=== PATIENT | male | born 1935 | race Caucasian/White ===

== ENCOUNTER → 2017-09-01 | Outpatient (CLI) | payer MEDICARE | LOC: PLD 11:46 → LAB SHORT 11:46 | DX: D48.5 Neoplasm of uncertain behavior of skin (principal) | CPT/HCPCS: 88304; 88305 ==

== ENCOUNTER → 2017-09-14 | Outpatient (CLI) | payer MEDICARE | END | disposition home or self-care (01) | LOC: LAB SHORT 13:29 → PLD 13:29 | DX: D48.5 Neoplasm of uncertain behavior of skin (principal) | CPT/HCPCS: 88305 ==

== ENCOUNTER → 2017-09-22 | Outpatient (CLI) | payer MEDICARE | LOC: PLD 13:49 → LAB SHORT 13:49 | DX: C44.310 Basal cell carcinoma of skin of unspecified parts of face (principal) | CPT/HCPCS: 88305 ==

== ENCOUNTER → 2019-08-17 | Outpatient (CLI) | payer MEDICARE | END | disposition home or self-care (01) | LOC: PLD 08:08 → LAB SHORT 08:08 | DX: D23.71 Other benign neoplasm of skin of right lower limb, including hip (principal) | CPT/HCPCS: 88305 ==

== ENCOUNTER → 2021-02-06 | Outpatient (CLI) | payer MEDICARE | END | disposition home or self-care (01) | LOC: LAB SHORT 12:08 | DX: B37.2 Candidiasis of skin and nail (principal); B36.8 Other specified superficial mycoses; L85.9 Epidermal thickening, unspecified | CPT/HCPCS: 88305; 88312 ==

== ENCOUNTER → 2021-02-06 | Outpatient (CLI) | payer MEDICARE | END | disposition home or self-care (01) | LOC: LAB 09:35 → LAB SHORT 09:35 | DX: L08.0 Pyoderma (principal) | CPT/HCPCS: 87070; 87205 ==

== ENCOUNTER 2021-10-14 11:20 | Emergency (ER) | payer MEDICARE ==
[~2021-10-14] VITALS: Ht 175.3 cm; Wt 91.2 kg
[2021-10-14 12:31] LABS: BASOPHILS ABSOLUTE AUTO 0.03 K/mm3 (0.00-0.23); BASOPHILS PERCENT AUTO 1 % (0-2); EOSINOPHILS ABSOLUTE AUTO 0.12 K/mm3 (0.00-0.68); EOSINOPHILS PERCENT AUTO 3 % (0-6); Hemoglobin 12.5 g/dL (13.5-17.5); IMMATURE GRAN ABSOLUTE AUTO 0.01 K/mm3 (0.00-0.10); IMMATURE GRAN PERCENT AUTO 0 % (0-1); LYMPHOCYTES PERCENT AUTO 28 % (21-46); MONOCYTES ABSOLUTE AUTO 0.37 K/mm3 (0.16-1.47); MONOCYTES PERCENT AUTO 8 % (4-13); Mean Corpuscular HGB 32.6 pg (26.0-34.0); Mean Corpuscular HGB Conc 31.3 g/dL (31.5-36.5); Mean Corpuscular Volume 104 fL (80-100); Mean Platelet Volume 10.3 fL (9.1-12.4); NEUTROPHILS ABSOLUTE AUTO 2.77 K/mm3 (1.96-9.15); NEUTROPHILS PERCENT AUTO 60 % (41-73); Platelet Count 120 K/mm3 (150-400); RDW Coefficient Variation 13.3 % (11.7-14.2); RDW Standard Deviation 50.7 fL (35.1-46.3); Red Blood Cell Count 3.84 M/mm3 (4.30-5.90)
[2021-10-14 12:46] LABS: Albumin, Blood 3.5 g/dL (3.4-5.0); Albumin/Globulin Ratio 1.1 (0.8-1.8); Bilirubin, Total 0.5 mg/dL (0.1-1.0); Bun/Creatinine Ratio 14.1 (12.0-20.0); Calcium, Blood 8.7 mg/dL (8.5-10.1); Creatinine, Blood 1.42 mg/dL (0.60-1.20); Globulin, Blood 3.3 g/dL (2.2-4.0); Potassium, Blood 4.3 mmol/L (3.5-5.5); Total Protein, Blood 6.8 g/dL (6.4-8.2)
[2021-10-14] MEDS ORDERED: JANTOVEN3 M2 PO (12:56)
[2021-10-14] MEDS ORDERED: HYDROCODONE-AC1 EA16 PO (12:57)
[2021-10-14] MEDS ORDERED: NYSTATIN100000 U10 PO (12:57)
[2021-10-14] MEDS ORDERED: TRAZ50 PO (12:57)
[2021-10-14] MEDS ORDERED: DEXAMETHAS0.5 MG/5 M PO (12:57)
[2021-10-14] MEDS ORDERED: CITALOPRAM HBR20 M6 PO (12:58)
[2021-10-14] MEDS ORDERED: NYAMYC15 G1 TOP (12:58)
[2021-10-14] MEDS ORDERED: ALLOPURINOL100 M1 PO (12:58)
[2021-10-14] MEDS ORDERED: FUROSEMIDE20 MG PO (12:59)
[2021-10-14] MEDS ORDERED: LOVASTATIN20 MG PO (12:59)
[2021-10-14 14:20] LABS: Prothrombin Time Results 47.6 Sec (9.7-11.5)
[2021-10-14 14:23] LABS: International Normalized Ratio 5.04
== END 2021-10-14 15:08 | disposition home or self-care (01) ==
LOC: ER 11:20
PROVIDERS: Emergency Medicine; Physician Assistant
DX: R55 Syncope and collapse (principal); R79.1 Abnormal coagulation profile
CPT/HCPCS: 36415; 80053; 84484; 85025; 85610; 93005; 93010; 99284-25

== ENCOUNTER → 2021-11-12 | Outpatient (CLI) | payer MEDICARE ==
[~2021-11-12] MED LIST: ALLOPURINOL100 M1 PO; CITALOPRAM HBR20 M6 PO; DEXAMETHAS0.5 MG/5 M PO; FUROSEMIDE20 MG PO; HYDROCODONE-AC1 EA16 PO; JANTOVEN3 M2 PO; LOVASTATIN20 MG PO; NYAMYC15 G1 TOP; NYSTATIN100000 U10 PO; TRAZ50 PO
== END | disposition home or self-care (01) ==
LOC: LAB SHORT 08:17 → PLD 08:17 → LAB 08:17
DX: D48.5 Neoplasm of uncertain behavior of skin (principal)
CPT/HCPCS: 88305

== ENCOUNTER 2022-02-01 07:08 | Emergency (ER) | payer MEDICARE ==
[~2022-02-01] VITALS: Ht 175.3 cm; Wt 94.8 kg
[2022-02-01 08:51] LABS: Influenza A, PCR NEGATIVE (NEGATIVE); Influenza B, PCR NEGATIVE (NEGATIVE); Resp Syncytial Virus, PCR NEGATIVE (NEGATIVE); SARS-Cov-2 (COVID-19) PCR, MMC NEGATIVE (NEGATIVE)
[2022-02-01 09:26] LABS: BASOPHILS ABSOLUTE AUTO 0.07 K/mm3 (0.00-0.23); BASOPHILS PERCENT AUTO 1 % (0-2); EOSINOPHILS ABSOLUTE AUTO 0.19 K/mm3 (0.00-0.68); EOSINOPHILS PERCENT AUTO 3 % (0-6); Hematocrit 39.5 % (37.0-53.0); Hemoglobin 12.5 g/dL (13.5-17.5); IMMATURE GRAN ABSOLUTE AUTO 0.04 K/mm3 (0.00-0.10); IMMATURE GRAN PERCENT AUTO 1 % (0-1); LYMPHOCYTES ABSOLUTE AUTO 1.82 K/mm3 (0.84-5.20); LYMPHOCYTES PERCENT AUTO 28 % (21-46); MONOCYTES ABSOLUTE AUTO 0.77 K/mm3 (0.16-1.47); MONOCYTES PERCENT AUTO 12 % (4-13); Mean Corpuscular HGB 32.4 pg (26.0-34.0); Mean Corpuscular HGB Conc 31.6 g/dL (31.5-36.5); Mean Corpuscular Volume 102 fL (80-100); Mean Platelet Volume 10.1 fL (9.1-12.4); NEUTROPHILS ABSOLUTE AUTO 3.62 K/mm3 (1.96-9.15); NEUTROPHILS PERCENT AUTO 56 % (41-73); Platelet Count 126 K/mm3 (150-400); RDW Standard Deviation 48.8 fL (35.1-46.3); Red Blood Cell Count 3.86 M/mm3 (4.30-5.90); White Blood Cell Count 6.51 K/mm3 (4.00-11.30)
[2022-02-01 09:44] LABS: Albumin, Blood 3.7 g/dL (3.4-5.0); Albumin/Globulin Ratio 1.2 (0.8-1.8); Bilirubin, Total 0.7 mg/dL (0.1-1.0); Bun/Creatinine Ratio 15.9 (12.0-20.0); Calcium, Blood 9.3 mg/dL (8.5-10.1); Creatinine, Blood 1.64 mg/dL (0.60-1.20); Globulin, Blood 3.1 g/dL (2.2-4.0); Potassium, Blood 3.8 mmol/L (3.5-5.5); Total Protein, Blood 6.8 g/dL (6.4-8.2)
== END 2022-02-01 10:42 | disposition home or self-care (01) ==
LOC: ER 07:08
PROVIDERS: Emergency Medicine
DX: R42 Dizziness and giddiness (principal); Z20.822 Contact with and (suspected) exposure to COVID-19; Z79.01 Long term (current) use of anticoagulants; Z79.899 Other long term (current) drug therapy
CPT/HCPCS: 0241U; 80053; 84484; 85025; 93005; 93010

== ENCOUNTER → 2022-03-27 | Outpatient (CLI) | payer MEDICARE | END | disposition home or self-care (01) | LOC: LAB 15:23 → PLD 15:23 → LAB SHORT 15:23 | DX: L57.0 Actinic keratosis (principal) | CPT/HCPCS: 88305 ==

== ENCOUNTER → 2022-07-03 | Outpatient (CLI) | payer MEDICARE | END | disposition home or self-care (01) | LOC: LAB SHORT 10:30 → LAB 10:30 | DX: L08.0 Pyoderma (principal) | CPT/HCPCS: 87070; 87077; 87186; 87205 ==

== ENCOUNTER → 2022-08-28 | Outpatient (CLI) | payer MEDICARE | END | disposition home or self-care (01) | LOC: LAB 11:25 → LAB SHORT 11:25 | DX: L08.0 Pyoderma (principal) | CPT/HCPCS: 87070; 87205 ==

== ENCOUNTER → 2023-02-04 | Outpatient (CLI) | payer MEDICARE | END | disposition home or self-care (01) | LOC: LAB 15:30 → LAB SHORT 15:30 | DX: L08.0 Pyoderma (principal) | CPT/HCPCS: 87070; 87205 ==

== ENCOUNTER 2023-02-18 04:08 | Day surgery (SDC) | payer MEDICARE | END 2023-02-18 23:03 | disposition home or self-care (01) | LOC: WOUND 04:08 | DX: L08.0 Pyoderma (principal); L94.0 Localized scleroderma [morphea]; S31.109D Unspecified open wound of abdominal wall, unspecified quadrant without penetration into peritoneal cavity, subsequent encounter | CPT/HCPCS: A9270; G0463 ==

== ENCOUNTER 2023-02-25 01:20 | Day surgery (SDC) | payer MEDICARE | END 2023-02-25 23:12 | disposition home or self-care (01) | LOC: WOUND 01:20 | DX: L08.0 Pyoderma (principal); S31.109D Unspecified open wound of abdominal wall, unspecified quadrant without penetration into peritoneal cavity, subsequent encounter | CPT/HCPCS: A9270; G0463 ==

== ENCOUNTER 2023-03-05 02:38 | Day surgery (SDC) | payer MEDICARE | END 2023-03-05 23:36 | disposition home or self-care (01) | LOC: WOUND 02:38 | DX: L08.0 Pyoderma (principal); S31.109D Unspecified open wound of abdominal wall, unspecified quadrant without penetration into peritoneal cavity, subsequent encounter; X58.XXXD Exposure to other specified factors, subsequent encounter; I10 Essential (primary) hypertension; I25.10 Atherosclerotic heart disease of native coronary artery without angina pectoris | CPT/HCPCS: A9270; G0463 ==

== ENCOUNTER 2023-03-19 03:57 | Day surgery (SDC) | payer MEDICARE | END 2023-03-19 23:18 | disposition home or self-care (01) | LOC: WOUND 03:57 | DX: L08.0 Pyoderma (principal); S31.109D Unspecified open wound of abdominal wall, unspecified quadrant without penetration into peritoneal cavity, subsequent encounter; X58.XXXD Exposure to other specified factors, subsequent encounter; I25.10 Atherosclerotic heart disease of native coronary artery without angina pectoris; I10 Essential (primary) hypertension | CPT/HCPCS: A9270 ==

== ENCOUNTER 2023-03-23 11:01 | Day surgery (SDC) | payer MEDICARE | END 2023-03-23 22:44 | disposition home or self-care (01) | LOC: WOUND 11:01 | DX: S31.100A Unspecified open wound of abdominal wall, right upper quadrant without penetration into peritoneal cavity, initial encounter (principal); L08.0 Pyoderma; I25.10 Atherosclerotic heart disease of native coronary artery without angina pectoris; I10 Essential (primary) hypertension; X58.XXXA Exposure to other specified factors, initial encounter | CPT/HCPCS: G0463 ==

== ENCOUNTER 2023-04-10 00:50 | Day surgery (SDC) | payer MEDICARE | END 2023-04-10 22:47 | disposition home or self-care (01) | LOC: WOUND 00:50 | DX: L08.0 Pyoderma (principal); S31.109D Unspecified open wound of abdominal wall, unspecified quadrant without penetration into peritoneal cavity, subsequent encounter; X58.XXXD Exposure to other specified factors, subsequent encounter; I25.10 Atherosclerotic heart disease of native coronary artery without angina pectoris; I10 Essential (primary) hypertension | CPT/HCPCS: G0463 ==

== ENCOUNTER 2023-04-17 00:40 | Day surgery (SDC) | payer MEDICARE | END 2023-04-17 23:10 | disposition home or self-care (01) | LOC: WOUND 00:40 | DX: S31.109D Unspecified open wound of abdominal wall, unspecified quadrant without penetration into peritoneal cavity, subsequent encounter (principal); L08.0 Pyoderma | CPT/HCPCS: G0463 ==

== ENCOUNTER → 2023-04-28 | Outpatient (CLI) | payer MEDICARE | LOC: PLD 11:57 → LAB SHORT 11:57 | DX: D48.5 Neoplasm of uncertain behavior of skin (principal) | CPT/HCPCS: 88305 ==

== ENCOUNTER 2023-04-30 03:04 | Day surgery (SDC) | payer MEDICARE | END 2023-04-30 23:04 | disposition home or self-care (01) | LOC: WOUND 03:04 | DX: S31.109D Unspecified open wound of abdominal wall, unspecified quadrant without penetration into peritoneal cavity, subsequent encounter (principal); X58.XXXD Exposure to other specified factors, subsequent encounter; L08.0 Pyoderma | CPT/HCPCS: G0463 ==

== ENCOUNTER 2023-05-07 08:00 | Day surgery (SDC) | payer MEDICARE | END 2023-05-07 23:59 | disposition home or self-care (01) | LOC: WOUND 08:00 | DX: S31.100A Unspecified open wound of abdominal wall, right upper quadrant without penetration into peritoneal cavity, initial encounter (principal); S31.103A Unspecified open wound of abdominal wall, right lower quadrant without penetration into peritoneal cavity, initial encounter; T81.31XA Disruption of external operation (surgical) wound, not elsewhere classified, initial encounter; Y83.8 Other surgical procedures as the cause of abnormal reaction of the patient, or of later complication, without mention of misadventure at the time of the procedure; X58.XXXA Exposure to other specified factors, initial encounter; I25.10 Atherosclerotic heart disease of native coronary artery without angina pectoris; I10 Essential (primary) hypertension; L08.0 Pyoderma | CPT/HCPCS: G0463 ==

== ENCOUNTER 2023-05-28 03:18 | Day surgery (SDC) | payer MEDICARE | END 2023-05-28 22:35 | disposition home or self-care (01) | LOC: WOUND 03:18 | DX: L08.0 Pyoderma (principal); S81.801D Unspecified open wound, right lower leg, subsequent encounter; S31.103D Unspecified open wound of abdominal wall, right lower quadrant without penetration into peritoneal cavity, subsequent encounter; S31.100D Unspecified open wound of abdominal wall, right upper quadrant without penetration into peritoneal cavity, subsequent encounter; I25.10 Atherosclerotic heart disease of native coronary artery without angina pectoris; I10 Essential (primary) hypertension | CPT/HCPCS: A9270; G0463 ==

== ENCOUNTER 2023-06-04 05:15 | Day surgery (SDC) | payer MEDICARE | END 2023-06-04 22:44 | disposition home or self-care (01) | LOC: WOUND 05:15 | DX: S31.109D Unspecified open wound of abdominal wall, unspecified quadrant without penetration into peritoneal cavity, subsequent encounter (principal); X58.XXXD Exposure to other specified factors, subsequent encounter; L08.0 Pyoderma; I25.10 Atherosclerotic heart disease of native coronary artery without angina pectoris; I10 Essential (primary) hypertension | CPT/HCPCS: A9270; G0463 ==

== ENCOUNTER 2023-06-10 09:14 | Day surgery (SDC) | payer MEDICARE | END 2023-06-10 22:50 | disposition home or self-care (01) | LOC: WOUND 09:14 | DX: L08.0 Pyoderma (principal); I25.10 Atherosclerotic heart disease of native coronary artery without angina pectoris; I10 Essential (primary) hypertension; T81.30XD Disruption of wound, unspecified, subsequent encounter; Y83.8 Other surgical procedures as the cause of abnormal reaction of the patient, or of later complication, without mention of misadventure at the time of the procedure | CPT/HCPCS: G0463 ==

== ENCOUNTER 2023-06-18 02:02 | Day surgery (SDC) | payer MEDICARE | END 2023-06-18 22:51 | disposition home or self-care (01) | LOC: WOUND 02:02 | DX: S31.109D Unspecified open wound of abdominal wall, unspecified quadrant without penetration into peritoneal cavity, subsequent encounter (principal); S81.801D Unspecified open wound, right lower leg, subsequent encounter; X58.XXXD Exposure to other specified factors, subsequent encounter; L08.0 Pyoderma | CPT/HCPCS: A9270; G0463 ==

== ENCOUNTER 2023-07-16 02:53 | Day surgery (SDC) | payer MEDICARE | END 2023-07-16 22:57 | disposition home or self-care (01) | LOC: WOUND 02:53 | DX: S31.100D Unspecified open wound of abdominal wall, right upper quadrant without penetration into peritoneal cavity, subsequent encounter (principal); S81.801D Unspecified open wound, right lower leg, subsequent encounter; X58.XXXD Exposure to other specified factors, subsequent encounter; L08.0 Pyoderma; I10 Essential (primary) hypertension; I25.10 Atherosclerotic heart disease of native coronary artery without angina pectoris | CPT/HCPCS: G0463 ==

== ENCOUNTER 2023-07-23 04:57 | Day surgery (SDC) | payer MEDICARE | END 2023-07-24 23:56 | disposition home or self-care (01) | LOC: WOUND 04:57 | DX: S31.100D Unspecified open wound of abdominal wall, right upper quadrant without penetration into peritoneal cavity, subsequent encounter (principal); S31.103D Unspecified open wound of abdominal wall, right lower quadrant without penetration into peritoneal cavity, subsequent encounter; L08.0 Pyoderma; S81.801D Unspecified open wound, right lower leg, subsequent encounter; X58.XXXD Exposure to other specified factors, subsequent encounter; I25.10 Atherosclerotic heart disease of native coronary artery without angina pectoris; I10 Essential (primary) hypertension | CPT/HCPCS: A9270; G0463 ==

== ENCOUNTER 2023-07-30 01:50 | Day surgery (SDC) | payer MEDICARE | END 2023-07-30 22:46 | disposition home or self-care (01) | LOC: WOUND 01:50 | DX: L08.0 Pyoderma (principal); S31.109D Unspecified open wound of abdominal wall, unspecified quadrant without penetration into peritoneal cavity, subsequent encounter; S81.801D Unspecified open wound, right lower leg, subsequent encounter; X58.XXXD Exposure to other specified factors, subsequent encounter | CPT/HCPCS: A9270; G0463 ==

== ENCOUNTER 2023-08-07 03:00 | Day surgery (SDC) | payer MEDICARE | END 2023-08-07 22:58 | disposition home or self-care (01) | LOC: WOUND 03:00 | DX: L08.0 Pyoderma (principal); I25.10 Atherosclerotic heart disease of native coronary artery without angina pectoris; I10 Essential (primary) hypertension; S31.109D Unspecified open wound of abdominal wall, unspecified quadrant without penetration into peritoneal cavity, subsequent encounter | CPT/HCPCS: G0463 ==

== ENCOUNTER 2023-08-14 02:47 | Day surgery (SDC) | payer MEDICARE | END 2023-08-14 22:48 | disposition home or self-care (01) | LOC: WOUND 02:47 | DX: S31.109D Unspecified open wound of abdominal wall, unspecified quadrant without penetration into peritoneal cavity, subsequent encounter (principal); L08.0 Pyoderma; S81.801D Unspecified open wound, right lower leg, subsequent encounter; X58.XXXD Exposure to other specified factors, subsequent encounter | CPT/HCPCS: G0463 ==

== ENCOUNTER 2023-08-21 01:19 | Day surgery (SDC) | payer MEDICARE | END 2023-08-21 22:49 | disposition home or self-care (01) | LOC: WOUND 01:19 | DX: L08.0 Pyoderma (principal); I25.10 Atherosclerotic heart disease of native coronary artery without angina pectoris; I10 Essential (primary) hypertension; S31.109D Unspecified open wound of abdominal wall, unspecified quadrant without penetration into peritoneal cavity, subsequent encounter; S81.801D Unspecified open wound, right lower leg, subsequent encounter; E78.2 Mixed hyperlipidemia; E79.0 Hyperuricemia without signs of inflammatory arthritis and tophaceous disease; R41.3 Other amnesia; X58.XXXD Exposure to other specified factors, subsequent encounter | CPT/HCPCS: 36415; 80053; 80061; 82043; 82570; 82607; 82746; 84443; 84550; 85025; 85651; 86592; A9270; G0463 ==

== ENCOUNTER 2023-08-28 03:38 | Day surgery (SDC) | payer MEDICARE | END 2023-08-28 23:41 | disposition home or self-care (01) | LOC: WOUND 03:38 | DX: L08.0 Pyoderma (principal); I25.10 Atherosclerotic heart disease of native coronary artery without angina pectoris | CPT/HCPCS: G0463 ==

== ENCOUNTER 2023-09-04 01:24 | Day surgery (SDC) | payer MEDICARE | END 2023-09-04 22:47 | disposition home or self-care (01) | LOC: WOUND 01:24 | DX: L08.0 Pyoderma (principal); I10 Essential (primary) hypertension; I25.10 Atherosclerotic heart disease of native coronary artery without angina pectoris; S31.109D Unspecified open wound of abdominal wall, unspecified quadrant without penetration into peritoneal cavity, subsequent encounter; S81.801D Unspecified open wound, right lower leg, subsequent encounter | CPT/HCPCS: G0463 ==

== ENCOUNTER 2023-09-11 00:49 | Day surgery (SDC) | payer MEDICARE ==
[2023-09-11] MEDS ORDERED: Triamcinolone Acet 0.1% Cream 15 gm ONE (08:53)
== END 2023-09-11 23:03 | disposition home or self-care (01) ==
LOC: WOUND 00:49
DX: L08.0 Pyoderma (principal); I25.10 Atherosclerotic heart disease of native coronary artery without angina pectoris; I10 Essential (primary) hypertension; S31.109D Unspecified open wound of abdominal wall, unspecified quadrant without penetration into peritoneal cavity, subsequent encounter; S81.801D Unspecified open wound, right lower leg, subsequent encounter
CPT/HCPCS: A9270; G0463

== ENCOUNTER 2023-09-18 01:37 | Day surgery (SDC) | payer MEDICARE | END 2023-09-20 23:19 | disposition home or self-care (01) | LOC: WOUND 01:37 | DX: L08.0 Pyoderma (principal); I25.10 Atherosclerotic heart disease of native coronary artery without angina pectoris; S31.109D Unspecified open wound of abdominal wall, unspecified quadrant without penetration into peritoneal cavity, subsequent encounter; S81.801D Unspecified open wound, right lower leg, subsequent encounter; I10 Essential (primary) hypertension | CPT/HCPCS: G0463 ==

== ENCOUNTER → 2023-11-05 | Outpatient (CLI) | payer MEDICARE | LOC: LAB 11:59 → LAB SHORT 11:59 | DX: D48.5 Neoplasm of uncertain behavior of skin (principal) | CPT/HCPCS: 88305; 88312 ==

== ENCOUNTER 2023-12-11 05:17 | Day surgery (SDC) | payer MEDICARE | END 2023-12-11 22:39 | disposition home or self-care (01) | LOC: WOUND 05:17 | DX: L08.0 Pyoderma (principal); I25.10 Atherosclerotic heart disease of native coronary artery without angina pectoris; I10 Essential (primary) hypertension; L89.313 Pressure ulcer of right buttock, stage 3; S31.109D Unspecified open wound of abdominal wall, unspecified quadrant without penetration into peritoneal cavity, subsequent encounter; S81.801D Unspecified open wound, right lower leg, subsequent encounter; X58.XXXD Exposure to other specified factors, subsequent encounter ==

== ENCOUNTER 2024-02-12 01:36 | Day surgery (SDC) | payer MEDICARE | END 2024-02-12 22:38 | disposition home or self-care (01) | LOC: WOUND 01:36 | DX: L08.0 Pyoderma (principal); I25.10 Atherosclerotic heart disease of native coronary artery without angina pectoris; I10 Essential (primary) hypertension; L89.313 Pressure ulcer of right buttock, stage 3; S31.109D Unspecified open wound of abdominal wall, unspecified quadrant without penetration into peritoneal cavity, subsequent encounter; S81.801D Unspecified open wound, right lower leg, subsequent encounter; X58.XXXD Exposure to other specified factors, subsequent encounter | CPT/HCPCS: G0463 ==

== ENCOUNTER 2024-03-04 03:41 | Day surgery (SDC) | payer MEDICARE | END 2024-03-04 22:56 | disposition home or self-care (01) | LOC: WOUND 03:41 | DX: L08.0 Pyoderma (principal); L89.313 Pressure ulcer of right buttock, stage 3; I25.10 Atherosclerotic heart disease of native coronary artery without angina pectoris; I10 Essential (primary) hypertension | CPT/HCPCS: G0463 ==

== ENCOUNTER 2024-04-07 01:14 | Day surgery (SDC) | payer MEDICARE | END 2024-04-07 22:45 | disposition home or self-care (01) | LOC: WOUND 01:14 | DX: L08.0 Pyoderma (principal); S31.100A Unspecified open wound of abdominal wall, right upper quadrant without penetration into peritoneal cavity, initial encounter; S31.103A Unspecified open wound of abdominal wall, right lower quadrant without penetration into peritoneal cavity, initial encounter; X58.XXXA Exposure to other specified factors, initial encounter; L89.313 Pressure ulcer of right buttock, stage 3; I10 Essential (primary) hypertension; I25.10 Atherosclerotic heart disease of native coronary artery without angina pectoris | CPT/HCPCS: G0463 ==

== ENCOUNTER 2024-04-22 04:49 | Day surgery (SDC) | payer MEDICARE ==
[2024-04-22] MEDS ORDERED: Lidocaine HCl 4% Cream 5 GM ONE (10:32)
== END 2024-04-23 01:37 | disposition home or self-care (01) ==
LOC: WOUND 04:49
DX: L08.0 Pyoderma (principal); S31.109D Unspecified open wound of abdominal wall, unspecified quadrant without penetration into peritoneal cavity, subsequent encounter; I25.10 Atherosclerotic heart disease of native coronary artery without angina pectoris; I10 Essential (primary) hypertension; X58.XXXD Exposure to other specified factors, subsequent encounter
CPT/HCPCS: A6213; A9270

== ENCOUNTER 2024-05-06 03:32 | Day surgery (SDC) | payer MEDICARE | END 2024-05-07 02:57 | disposition home or self-care (01) | LOC: WOUND 03:32 | DX: S31.109D Unspecified open wound of abdominal wall, unspecified quadrant without penetration into peritoneal cavity, subsequent encounter (principal); S61.501A Unspecified open wound of right wrist, initial encounter; I10 Essential (primary) hypertension; I25.10 Atherosclerotic heart disease of native coronary artery without angina pectoris | CPT/HCPCS: A6213; G0463 ==

== ENCOUNTER 2024-05-27 03:25 | Day surgery (SDC) | payer MEDICARE | END 2024-05-27 23:05 | disposition home or self-care (01) | LOC: WOUND 03:25 | DX: L08.0 Pyoderma (principal); I10 Essential (primary) hypertension; I25.10 Atherosclerotic heart disease of native coronary artery without angina pectoris | CPT/HCPCS: G0463 ==

== ENCOUNTER 2024-08-11 11:46 | Inpatient (IN) | payer MEDICARE ==
[~2024-08-11] VITALS: Ht 182.9 cm; Wt 83.5 kg
[~2024-08-11 11:46] MED LIST changes: -HYDROCODONE-AC1 EA16 PO; +Norco 5-325 Ta1 EACH PO
[2024-08-11 12:52] LABS: BASOPHILS ABSOLUTE AUTO 0.03 K/mm3 (0.00-0.23); BASOPHILS PERCENT AUTO 0 % (0-2); EOSINOPHILS ABSOLUTE AUTO 0.02 K/mm3 (0.00-0.68); EOSINOPHILS PERCENT AUTO 0 % (0-6); Hematocrit 39.5 % (37.0-53.0); Hemoglobin 12.9 g/dL (13.5-17.5); IMMATURE GRAN ABSOLUTE AUTO 0.03 K/mm3 (0.00-0.10); IMMATURE GRAN PERCENT AUTO 0 % (0-1); LYMPHOCYTES ABSOLUTE AUTO 1.35 K/mm3 (0.84-5.20); LYMPHOCYTES PERCENT AUTO 16 % (21-46); MONOCYTES PERCENT AUTO 15 % (4-13); Mean Corpuscular HGB 34.9 pg (26.0-34.0); Mean Corpuscular HGB Conc 32.7 g/dL (31.5-36.5); Mean Corpuscular Volume 107 fL (80-100); Mean Platelet Volume 10.4 fL (9.1-12.4); NEUTROPHILS ABSOLUTE AUTO 5.67 K/mm3 (1.96-9.15); NEUTROPHILS PERCENT AUTO 68 % (41-73); Platelet Count 122 K/mm3 (150-400); RDW Coefficient Variation 12.5 % (11.7-14.2); RDW Standard Deviation 49.2 fL (35.1-46.3)
[2024-08-11 13:04] LABS: International Normalized Ratio 2.64; Prothrombin Time Results 26.3 Sec (9.7-11.5)
[2024-08-11 13:18] LABS: Albumin, Blood 3.6 g/dL (3.4-5.0); Albumin/Globulin Ratio 0.9 (0.8-1.8); Bilirubin, Total 0.7 mg/dL (0.1-1.0); Bun/Creatinine Ratio 17.9 (12.0-20.0); Calcium, Blood 9.2 mg/dL (8.5-10.1); Creatinine, Blood 1.68 mg/dL (0.60-1.20); Globulin, Blood 4.1 g/dL (2.2-4.0); Potassium, Blood 3.6 mmol/L (3.5-5.5); Total Protein, Blood 7.7 g/dL (6.4-8.2)
[2024-08-11 16:37] LABS: Source, Urine Clean Catch
[2024-08-11 16:41] LABS: Appearance, Urine Clear (Clear); Bilirubin, Urine Neg (Neg); Blood, Urine 3+ (Neg); Color, Urine Yellow (P-Yellow); Glucose Qualitative, Urine Neg (Neg); Ketones, Urine Neg (Neg); Leukocyte Esterase, Urine Neg (Neg); Nitrite, Urine Neg (Neg); Protein, Urine 2+ (Neg); Specific Gravity, Urine 1.015 (1.003-1.022); Urobilinogen, Urine NORM (Normal)
[2024-08-11 17:01] LABS: Bacteria Rare /hpf; Squamous Epithelial Cells Rare /hpf (Few); White Blood Cells, Urine 0-2 /hpf (0-5)
[2024-08-11 18:09] LABS: Magnesium, Blood 2.2 mg/dL (1.6-2.4)
[2024-08-11] MEDS ORDERED: NS 1,000 ML IV SCH ×2 (18:20→20:50)
[2024-08-11 18:26] LABS: Influenza A, PCR NEGATIVE (NEGATIVE); Influenza B, PCR NEGATIVE (NEGATIVE); Resp Syncytial Virus, PCR NEGATIVE (NEGATIVE); SARS-Cov-2 (COVID-19) PCR, MMC NEGATIVE (NEGATIVE)
[2024-08-11] MEDS ORDERED: FLU VACC TS2024-25(6MOS UP)/PF 45 MCG/0.5 ML SYRINGE IM ONE (20:50)
[2024-08-11] MEDS ORDERED: Ondansetron HCl 2 MG / ML 2ML Vial IV PRN (20:50)
[2024-08-11] MEDS ORDERED: TraZODone HCl 50 MG Tab PO SCH (21:00)
[2024-08-11 23:11] VITALS: BP 117/54
--- NOTE | 2024-08-11 23:37 | NUR ---
PATIENT IS A NEW ADMIT FROM THE ED. AXOX 4, [place], AND BEDREST. ON ROOM AIR. THREE PERSON TRANSFER FROM [facility] TO BED. DENIES CHEST PAIN, SOB, AND N/V. REPORTS CHRONIC BACK/KNEE PAIN. PAIN DISC ON MID-BACK. SON PRESENT IS NOT SURE IF IS A STIMULATOR BECAUSE IT CAN BE RECHARGED. TELEMETRY PLACED AND TECH REPORTS NSR @ 66 WITH OCCASSIONAL PVC. USING URINAL AT BEDSIDE. SON VERA REPORTS PATIENT LIVES AT HIS HOUSE ALONE WITH SPOUSE PASSED TWO YEARS AGO. 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 SON REPORTS HE RECENTLY MOVED IN WITH PATIENT. NS STARTED @ 150 mL/HR. PATIENT REPORTS WANTS TO SLEEP AFTER ASSESSMENT. WCTM.
[2024-08-12 02:08] VITALS: BP 127/60
[2024-08-12] MEDS ORDERED: HYDROcodone 5-APAP 325 TAB PO PRN (02:35)
--- NOTE | 2024-08-12 05:05 | NUR ---
SHIFT SUMMARY PATIENT HAD NO ACUTE CHANGES. AXOX 4 AND BEDREST, USING CANE AT HOME. ALUTIIQ. USES URINAL AT BEDSIDE. DENIES CHEST PAIN, SOB, AND N/V. VSS/AFEBRILE. PIV INTACT. NS INFUSING @ 150 mL/HR. REPORTED CHRONIC BACK/KNEE PAIN AND HOSPITALIST DR ALMAGUER ORDERED NORCO 5/325 MG Q6 PRN. TELE MONITOR NSR 66. PAIN EXTERNAL DEVICE ON MIDDLE OF BACK WITH SON NOT SURE WHICH TIME, SUCH A SPINAL CORD STIMULATOR. CALL LIGHT IN REACH. BED IN LOWEST POSITION. WILL CONTINUE TO MONITOR UNTIL DAY SHIFT NURSE ASSUMES CARE.
[2024-08-12 05:40] LABS: BASOPHILS ABSOLUTE AUTO 0.02 K/mm3 (0.00-0.23); BASOPHILS PERCENT AUTO 0 % (0-2); EOSINOPHILS ABSOLUTE AUTO 0.02 K/mm3 (0.00-0.68); EOSINOPHILS PERCENT AUTO 0 % (0-6); Hematocrit 32.7 % (37.0-53.0); Hemoglobin 10.7 g/dL (13.5-17.5); IMMATURE GRAN ABSOLUTE AUTO 0.02 K/mm3 (0.00-0.10); IMMATURE GRAN PERCENT AUTO 0 % (0-1); LYMPHOCYTES ABSOLUTE AUTO 0.76 K/mm3 (0.84-5.20); LYMPHOCYTES PERCENT AUTO 11 % (21-46); MONOCYTES ABSOLUTE AUTO 0.92 K/mm3 (0.16-1.47); MONOCYTES PERCENT AUTO 13 % (4-13); Mean Corpuscular HGB 34.5 pg (26.0-34.0); Mean Corpuscular HGB Conc 32.7 g/dL (31.5-36.5); Mean Corpuscular Volume 106 fL (80-100); Mean Platelet Volume 10.1 fL (9.1-12.4); NEUTROPHILS PERCENT AUTO 75 % (41-73); NRBC ABSOLUTE 0.02 K/mm3 (0.00-0.02); NRBC Auto 0.3 /100 WBC (0.0-0.2); Platelet Count 105 K/mm3 (150-400); RDW Coefficient Variation 12.6 % (11.7-14.2); RDW Standard Deviation 48.7 fL (35.1-46.3); White Blood Cell Count 7.04 K/mm3 (4.00-11.30)
[2024-08-12 06:04] LABS: Albumin, Blood 2.7 g/dL (3.4-5.0); Albumin/Globulin Ratio 0.8 (0.8-1.8); Bilirubin, Total 0.8 mg/dL (0.1-1.0); Bun/Creatinine Ratio 16.2 (12.0-20.0); Calcium, Blood 8.5 mg/dL (8.5-10.1); Creatinine, Blood 1.48 mg/dL (0.60-1.20); Globulin, Blood 3.3 g/dL (2.2-4.0); Magnesium, Blood 1.9 mg/dL (1.6-2.4); Potassium, Blood 3.2 mmol/L (3.5-5.5)
[2024-08-12 07:08] LABS: International Normalized Ratio 2.54; Prothrombin Time Results 25.4 Sec (9.7-11.5)
[2024-08-12 07:32] VITALS: BP 111/51
[2024-08-12] MEDS ORDERED: Heparin Sodium 5000 Units/ML 1ML MDV SC SCH (09:00)
[2024-08-12] MEDS ORDERED: Allopurinol 100 MG Tab PO SCH (09:00)
[2024-08-12] MEDS ORDERED: DONE5 PO (10:40)
[2024-08-12] MEDS ORDERED: LOSARTAN POTAS100 M1 PO (10:40)
[2024-08-12] MEDS ORDERED: OMEP20ER PO (10:41)
[2024-08-12 15:31] VITALS: BP 109/51
--- NOTE | 2024-08-12 16:06 | NUR ---
PT BP 109/51 P 55, PER TELE, 61, DOES OCC DROP TO 55.
--- NOTE | 2024-08-12 16:50 | NUR ---
PT PLEASANT COOP QUITE PORT LIONS WITHOUT AIDES. SON IN ROOM MUCH OF DAY. PAIN IN LEGS. RELEIVED WITH AVAIL MEDS TO PT SATISFACTION. NO SYNCOPAL ISSUES TOAY. HAS BEEN UP WITH PT AND OT. BP SOFT BUT STABLE. NO FURTHER CONCERNS NOTED. BED IN LOW POSITION, CALL LITE IN REACH, CALLS APPROP
[2024-08-12] MEDS ORDERED: Warfarin Sodium 3 MG Tab PO SCH (18:00)
[2024-08-12 20:05] VITALS: BP 118/55
--- NOTE | 2024-08-13 03:53 | NUR ---
SHIFT SUMAMRY UP IN CHAIR UNTIL H.S., X2 ASSIST FROM RECLINER TO BED AT H.S. A&0X3. [place], PLEASANT. CALL LIGHT IN REACH & USES APPROPRIATLY RESTING WELL WITH NO C/O PAIN ORLIGHTHEADEDNESS OVERNIGHT,NO LOW BPs, GENERALIZED WEAKNESS, ON TELEMETRY AND WAS NSR W/ BBB PER TELEMETERY TECH AT 2127. NS INFUSING AT 150 ML/HR. ON ROOM AIR, LUNGS CLEAR/DIM. VSS. VOIDING WNL IN URINAL.
[2024-08-13 05:11] VITALS: BP 132/61
[2024-08-13 07:28] VITALS: BP 129/61
[2024-08-13 07:33] LABS: International Normalized Ratio 2.2; Prothrombin Time Results 22.2 Sec (9.7-11.5)
[2024-08-13 15:22] VITALS: BP 142/70
--- NOTE | 2024-08-13 17:29 | NUR ---
NO ACUTE CHANGES, FAMILY HELPFUL WITH CARE, MEDICATED FOR PAIN, MAKES NEEDS KNOWN, TELE DISCONTINUED, WAITING FOR SNF PLACEMENT, CALL LIGHT WITH IN REACH
[2024-08-13] MEDS ORDERED: Warfarin Sodium 5 MG Tab PO ONE (18:00)
[2024-08-13 20:29] VITALS: BP 144/68
--- NOTE | 2024-08-14 04:15 | NUR ---
BAGGAGE CHECKER SUMMARY VSS. SON WAS AT BEDSIDE AT SHIFT COMMENCE. PT JOKED WITH SON AND NURSE. ALERT AND ORIENTED. VOICED PAIN WHEN TAKING DEEP BREATHS, OTHERWISE ASYMPTOMATIC. PAIN MEDS ADMIN - SEE MAR FOR DETAILS. NO VOICED SYNCOPE. USING OWN CPAP AT NIGHT, HAS BEEN RESTING QUIETLY WITH FEW INTERRUPTIONS. HOB ELEVATED. CALL LIGHT IN REACH, RAILS UP X 2 AND BED IN LOW POSITION FOR SAFETY. WILL CONT TO MONITOR.
[2024-08-14 05:42] VITALS: BP 130/70
[2024-08-14 06:24] LABS: Hematocrit 35.2 % (37.0-53.0); Hemoglobin 11.2 g/dL (13.5-17.5); Mean Corpuscular HGB 34.3 pg (26.0-34.0); Mean Corpuscular HGB Conc 31.8 g/dL (31.5-36.5); Mean Corpuscular Volume 108 fL (80-100); Mean Platelet Volume 10.5 fL (9.1-12.4); Platelet Count 131 K/mm3 (150-400); RDW Coefficient Variation 12.7 % (11.7-14.2); RDW Standard Deviation 50.9 fL (35.1-46.3); Red Blood Cell Count 3.27 M/mm3 (4.30-5.90); White Blood Cell Count 5.41 K/mm3 (4.00-11.30)
[2024-08-14 06:34] LABS: International Normalized Ratio 1.93; Prothrombin Time Results 19.7 Sec (9.7-11.5)
[2024-08-14 07:01] LABS: Albumin, Blood 2.4 g/dL (3.4-5.0); Anion Gap 10 mmol/L (3-11); Blood Urea Nitrogen 24 mg/dL (8-24); Bun/Creatinine Ratio 17.8 (12.0-20.0); CO2, Blood 21 mmol/L (21-32); Calcium, Blood 8.8 mg/dL (8.5-10.1); Chloride, Blood 116 mmol/L (98-108); Creatinine, Blood 1.35 mg/dL (0.60-1.20); Glomerular Filtration Rate 51 (60-); Glucose, Blood 112 mg/dL (70-99); Phosphorus, Blood 2.6 mg/dL (2.5-4.9); Potassium, Blood 3.7 mmol/L (3.5-5.5); Sodium, Blood 143 mmol/L (136-145)
[2024-08-14 07:51] VITALS: BP 130/62
[2024-08-14 15:07] VITALS: BP 145/62
--- NOTE | 2024-08-14 17:09 | NUR ---
SHIFT SUMMARY PT AXO, PLEASANT AND COOPERATIVE WITH CARE. PT WAS ENCOURAGED TO GET UP TO A RECLINER AND HE AGREED X1. PT HAD VERY LARGE BM THIS SHIFT. PT'S SON CHANGED THE NEUROSTIMULATOR UNIT ON PT'S BACK THIS SHIFT. PT ON RA. VSS. NO ACUTE CHANGES THIS SHIFT. BED IN LOW POSITION, CALL LIGHT WITHIN REACH.
[2024-08-14] MEDS ORDERED: Warfarin Sodium 5 MG Tab PO ONE (18:00)
[2024-08-14 19:31] VITALS: BP 139/64
[2024-08-15 02:50] VITALS: BP 129/60
--- NOTE | 2024-08-15 03:59 | NUR ---
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 AFFECT CHEERFUL AT HS, JOKED WITH NURSE. REQUESTED AND RECEIVED PAIN MED FOR BACK PAIN. USING OWN CPAP MACHINE FOR SLEEP APNEA. NO C/O SYNCOPE. STATED HE WAS GOING TO GO TO [place] T[place]. HAS BEEN RESTING QUIETLY WITH FEW INTERRUPTIONS. CONT PULSE OX HR IN 50'S AND 60'S. SATS IN THE 90'S. ABLE TO REPOSITION SELF IN BED WITHOUT ASSIST. CALL LIGHT IN REACH, RAILS UP X 2 AND BED IN LOW POSITION FOR SAFETY. WILL CONTINUE TO MONITOR.
[2024-08-15 07:20] LABS: International Normalized Ratio 2.45; Prothrombin Time Results 24.5 Sec (9.7-11.5)
[2024-08-15 07:31] VITALS: BP 144/77
[2024-08-15 13:21] LABS: CK TOTAL 288 U/L (39-308); CK-BB 0 % (0-0); CK-MACRO TYPE I 0 % (0-0); CK-MACRO TYPE II 0 % (0-0); CK-MB 0 % (0-4); CK-MM 100 % (96-100)
[2024-08-15 15:39] VITALS: BP 137/63
[2024-08-15 15:42] VITALS: BP 140/58
[2024-08-15] MEDS ORDERED: Warfarin Sodium 3 MG Tab PO SCH (18:00)
--- NOTE | 2024-08-15 18:32 | NUR ---
PATIENT IS ALERT AND ORIENTED AND COOPERATIVE WITH CARE. [place], HEARING AIDS IN PLACE. SON AT THE BEDSIDE. ON CONT. PULSE OX, RA. USES THE URINAL INDEPENDENTLY. PLAN TO DC TO A ANSF WHEN ACCEPTED. FAMILY LIVES IN [place]. WILL CONTINUE TO MONITOR
[2024-08-15 19:37] VITALS: BP 147/72
[2024-08-16 03:51] VITALS: BP 144/68
[2024-08-16 06:07] LABS: International Normalized Ratio 2.79; Prothrombin Time Results 27.7 Sec (9.7-11.5)
--- NOTE | 2024-08-16 06:33 | NUR ---
Shift Summary Pt on CPAP on cont. O2 monitor while asleep. A few times his mouth would slip out of the mask area and pt would desat and down to upper 70's. I woke pt up when this happened and his O2 would quickly return to 90+ and then adjusted his mask. No other changes, pt is AOx4, uses urinal, slept well t/o the night.
[2024-08-16 07:16] VITALS: BP 140/95
[2024-08-16 15:21] VITALS: BP 157/72
[2024-08-16] MEDS ORDERED: Warfarin Sodium 3 MG Tab PO SCH (18:00)
[2024-08-16 19:45] VITALS: BP 142/75
--- NOTE | 2024-08-16 19:53 | NUR ---
SHIFT SUMMARY PATIENT WITH NO ACUTE EVENTS DURING SHIFT. HE WAS MEDICATED FOR PAIN PER EMAR. SON PRESENT FOR MOST OF DAY. HE IS INCREASING IN STRENGTH UP THIS EVENING TO BATHROOM FOR BOWEL MOVEMENT 2 PERSON ASSIST WITH WALKER AND GAIT BELT. HE DENIED ANY DIZZINESS OR OTHER ISSUES DURING SHIFT. BED IN LOW POSITION, CALL LIGHT IN REACH. ANDRIY USES CALL LIGHT APPROPRIATELY.
[2024-08-17 04:26] VITALS: BP 152/78
[2024-08-17 05:26] LABS: International Normalized Ratio 2.36; Prothrombin Time Results 23.7 Sec (9.7-11.5)
--- NOTE | 2024-08-17 06:18 | NUR ---
Shift Summary No acute changes. On O2 monitor, no desaturations overnight. Slept well t/o the night.
[2024-08-17 07:27] VITALS: BP 139/76
[2024-08-17 15:08] VITALS: BP 126/67
[2024-08-17] MEDS ORDERED: Warfarin Sodium 3 MG Tab PO SCH (18:00)
[2024-08-17 19:31] VITALS: BP 143/71
--- NOTE | 2024-08-17 19:50 | NUR ---
SHIFT SUMMARY NO ADVERSE EVENTS DURING SHIFT. PATIENT INCREASING IN STRENGTH, 1 PERSON ASSIST WITH GAIT BELT AND WALKER. HE DOES C/O PAIN AND MEDICATED PER EMAR. SON VERA AT BEDSIDE.
[2024-08-17] MEDS ORDERED: Acetaminophen 500 MG Tab PO PRN (22:35)
[2024-08-18 03:23] VITALS: BP 115/65
--- NOTE | 2024-08-18 04:43 | NUR ---
SHIFT SUMMARY NOC PT A/O X 4, [place] AND [place] HAS BILATERAL HEARING AIDES. PLEASANT AND COOPERATIVE WITH CARE. VSS. BACK/BLE PAIN FROM RECENT FALL BEING MANAGED PER EMAR. PT IS EAGER TO DISCHARGE TODAY TO [facility] IN [place]. PT WILL BE PICKED UP BY TRANSPORT ON GURNEY @ 1200. PT CURRENTLY RESTING WITH BED IN LOWEST POSITION, AND CALL LIGHT WITHIN REACH.
[2024-08-18 06:21] LABS: International Normalized Ratio 1.85; Prothrombin Time Results 18.9 Sec (9.7-11.5)
[2024-08-18 07:32] VITALS: BP 137/76
[2024-08-18] MEDS ORDERED: ALLO100 PO (09:36)
--- NOTE | 2024-08-18 12:51 | NUR ---
PT IS A&0X4, VSS AND RA. PT HAD MINIMAN C/O PAIN THIS MORNING WITH PRN MEDICATION GIVEN WITH RELIEF. SEE EMAR FOR DETAILS. CALLED REPORT WITH [facility] FOR REPORT. SPOKE WITH JADIEL PAINTING. PT WILL BE TRANSPORTED VIA AMBULANCE. PT AND LOVED ONE AT BEDSIDE HAVE NO QUESTIONS OR CONCERNS AT THIS TIME
--- NOTE | 2024-08-18 13:09 | NUR ---
pt discharged THE PT WAS DIISCHARGED TO FACILITY. PT TRANSFERED VIA GURNEY. REPORT WAS GIVEN BY THE PRIMARY RN TO THE RECIEVING RN. BELONGINGS RELEASED TO THE PT AND HIS FAMILY. THE PT WAS ACCOMPANIED BY THE ESCORT SERVICE
[2024-08-18] MEDS ORDERED: Warfarin Sodium 5 MG Tab PO ONE (18:00)
== END 2024-08-18 13:08 | DRG 312 ==
LOC: ER 11:46 → MEDS 11:47 → ER 22:15 → MEDS 22:19 → ENPENDDIS 08-17 12:54 → MEDS 08-18 13:08
PROVIDERS: Internal Medicine; Nurse Practitioner Acute Care; Physician Assistant; Student in an Organized Health Care Education/Training Program; ADMIT Internal Medicine
PROC: 5A09457 Assistance with Respiratory Ventilation, 24-96 Consecutive Hours, Continuous Positive Airway Pressure (ICD-10-PCS; principal; 2024-08-13)
DX: R55 Syncope and collapse (principal); E87.20 Acidosis, unspecified; M10.9 Gout, unspecified; E11.22 Type 2 diabetes mellitus with diabetic chronic kidney disease; E78.5 Hyperlipidemia, unspecified; M51.369 Other intervertebral disc degeneration, lumbar region without mention of lumbar back pain or lower extremity pain; F03.90 Unspecified dementia, unspecified severity, without behavioral disturbance, psychotic disturbance, mood disturbance, and anxiety; E87.6 Hypokalemia; N18.30 Chronic kidney disease, stage 3 unspecified; D63.1 Anemia in chronic kidney disease; Z95.0 Presence of cardiac pacemaker; Z90.49 Acquired absence of other specified parts of digestive tract; Z96.1 Presence of intraocular lens; Z98.42 Cataract extraction status, left eye; Z98.41 Cataract extraction status, right eye; Z90.89 Acquired absence of other organs; Z98.890 Other specified postprocedural states; Z79.01 Long term (current) use of anticoagulants; Z79.899 Other long term (current) drug therapy; Z79.891 Long term (current) use of opiate analgesic
CPT/HCPCS: 0241U; 36415; 70450; 73502; 73562-LT; 73562-RT; 80053; 80069; 81001; 82550; 82552; 83735; 84484; 85025; 85027; 85610; 85730; 93005; 93010; 94762; 96360; 96361; 97110; 97116; 97162; 97165; 97530; 97535; 99285-25; A9270; G0378; J7030

== ENCOUNTER 2024-10-11 03:39 | Day surgery (SDC) | payer MEDICARE ==
[~2024-10-11 03:39] MED LIST changes: +ALLO100 PO; +DONE5 PO; +LOSARTAN POTAS100 M1 PO; +OMEP20ER PO
== END 2024-10-11 23:08 | disposition home or self-care (01) ==
LOC: WOUND 03:39
DX: L08.0 Pyoderma (principal); I25.10 Atherosclerotic heart disease of native coronary artery without angina pectoris; I12.9 Hypertensive chronic kidney disease with stage 1 through stage 4 chronic kidney disease, or unspecified chronic kidney disease; N18.9 Chronic kidney disease, unspecified
CPT/HCPCS: G0463

== ENCOUNTER 2024-10-18 00:45 | Day surgery (SDC) | payer MEDICARE | END 2024-10-18 23:03 | disposition home or self-care (01) | LOC: WOUND 00:45 | DX: L08.0 Pyoderma (principal); S31.109A Unspecified open wound of abdominal wall, unspecified quadrant without penetration into peritoneal cavity, initial encounter; I10 Essential (primary) hypertension; I25.10 Atherosclerotic heart disease of native coronary artery without angina pectoris | CPT/HCPCS: G0463 ==

== ENCOUNTER 2024-11-04 00:33 | Day surgery (SDC) | payer MEDICARE | END 2024-11-04 23:00 | disposition home or self-care (01) | LOC: WOUND 00:33 | DX: L08.0 Pyoderma (principal); S31.109D Unspecified open wound of abdominal wall, unspecified quadrant without penetration into peritoneal cavity, subsequent encounter; X58.XXXD Exposure to other specified factors, subsequent encounter | CPT/HCPCS: G0463 ==

== ENCOUNTER 2024-11-11 03:37 | Day surgery (SDC) | payer MEDICARE ==
[2024-11-11] MEDS ORDERED: Silver Nitr/Potassium Nitrate 1 EA APPL ONE (11:45)
== END 2024-11-11 23:00 | disposition home or self-care (01) ==
LOC: WOUND 03:37
DX: L08.0 Pyoderma (principal); I25.10 Atherosclerotic heart disease of native coronary artery without angina pectoris; I10 Essential (primary) hypertension; S31.109D Unspecified open wound of abdominal wall, unspecified quadrant without penetration into peritoneal cavity, subsequent encounter; X58.XXXD Exposure to other specified factors, subsequent encounter
CPT/HCPCS: A9270

== ENCOUNTER 2024-11-25 02:57 | Day surgery (SDC) | payer MEDICARE ==
[2024-11-25] MEDS ORDERED: Silver Nitr/Potassium Nitrate 1 EA APPL ONE (11:41)
== END 2024-11-25 23:00 | disposition home or self-care (01) ==
LOC: WOUND 02:57
DX: L08.0 Pyoderma (principal); I25.10 Atherosclerotic heart disease of native coronary artery without angina pectoris; I10 Essential (primary) hypertension
CPT/HCPCS: A9270

== ENCOUNTER 2024-12-02 03:21 | Day surgery (SDC) | payer MEDICARE ==
[2024-12-02] MEDS ORDERED: Silver Nitr/Potassium Nitrate 1 EA APPL ONE (11:26)
== END 2024-12-02 23:00 | disposition home or self-care (01) ==
LOC: WOUND 03:21
DX: L08.0 Pyoderma (principal); S31.109A Unspecified open wound of abdominal wall, unspecified quadrant without penetration into peritoneal cavity, initial encounter; I10 Essential (primary) hypertension; I25.10 Atherosclerotic heart disease of native coronary artery without angina pectoris; Z79.899 Other long term (current) drug therapy; X58.XXXA Exposure to other specified factors, initial encounter
CPT/HCPCS: A6213; A9270

== ENCOUNTER 2024-12-09 05:05 | Day surgery (SDC) | payer MEDICARE ==
[2024-12-09] MEDS ORDERED: Triamcinolone Acet 0.1% Cream 15 gm ONE (11:43)
== END 2024-12-09 23:00 | disposition home or self-care (01) ==
LOC: WOUND 05:05
DX: L08.0 Pyoderma (principal); S31.109D Unspecified open wound of abdominal wall, unspecified quadrant without penetration into peritoneal cavity, subsequent encounter; I25.10 Atherosclerotic heart disease of native coronary artery without angina pectoris; I10 Essential (primary) hypertension; X58.XXXD Exposure to other specified factors, subsequent encounter
CPT/HCPCS: A6213; A9270; G0463

== ENCOUNTER 2024-12-30 08:00 | Day surgery (SDC) | payer MEDICARE | END 2024-12-30 23:37 | disposition home or self-care (01) | LOC: WOUND 08:00 | DX: L08.0 Pyoderma (principal); I25.10 Atherosclerotic heart disease of native coronary artery without angina pectoris; I10 Essential (primary) hypertension; S31.109D Unspecified open wound of abdominal wall, unspecified quadrant without penetration into peritoneal cavity, subsequent encounter; X58.XXXD Exposure to other specified factors, subsequent encounter | CPT/HCPCS: A6196; A6213 ==

== ENCOUNTER 2025-01-05 03:27 | Day surgery (SDC) | payer MEDICARE ==
[2025-01-05] MEDS ORDERED: Lidocaine HCl 4% Cream 5 GM ONE (11:11)
== END 2025-01-05 23:40 | disposition home or self-care (01) ==
LOC: WOUND 03:27
DX: L08.0 Pyoderma (principal); S31.109D Unspecified open wound of abdominal wall, unspecified quadrant without penetration into peritoneal cavity, subsequent encounter; X58.XXXD Exposure to other specified factors, subsequent encounter
CPT/HCPCS: A6196; A6213; A9270

== ENCOUNTER 2025-01-26 02:33 | Day surgery (SDC) | payer MEDICARE ==
[2025-01-26] MEDS ORDERED: Miconazole Nitrate 2% 85 GM PWD ONE (11:45)
== END 2025-01-26 23:00 | disposition home or self-care (01) ==
LOC: WOUND 02:33
DX: S31.103A Unspecified open wound of abdominal wall, right lower quadrant without penetration into peritoneal cavity, initial encounter (principal); L08.0 Pyoderma; X58.XXXA Exposure to other specified factors, initial encounter
CPT/HCPCS: A6196; A6213; A9270; G0463

== ENCOUNTER 2025-02-02 03:50 | Day surgery (SDC) | payer MEDICARE ==
[2025-02-02] MEDS ORDERED: Miconazole Nitrate 2% 85 GM PWD ONE (09:18)
== END 2025-02-02 23:00 | disposition home or self-care (01) ==
LOC: WOUND 03:50
DX: L08.0 Pyoderma (principal); S31.109D Unspecified open wound of abdominal wall, unspecified quadrant without penetration into peritoneal cavity, subsequent encounter; X58.XXXD Exposure to other specified factors, subsequent encounter
CPT/HCPCS: A6213; A9270; G0463

== ENCOUNTER 2025-02-10 01:41 | Day surgery (SDC) | payer MEDICARE ==
[2025-02-10] MEDS ORDERED: Miconazole Nitrate 2% 85 GM PWD ONE (11:23)
== END 2025-02-10 23:00 | disposition home or self-care (01) ==
LOC: WOUND 01:41
DX: S31.103D Unspecified open wound of abdominal wall, right lower quadrant without penetration into peritoneal cavity, subsequent encounter (principal); L08.0 Pyoderma; I10 Essential (primary) hypertension; I25.10 Atherosclerotic heart disease of native coronary artery without angina pectoris
CPT/HCPCS: A6196; A6213; A9270; G0463

== ENCOUNTER 2025-02-14 12:58 | Emergency (ER) | payer MEDICARE ==
[~2025-02-14] VITALS: Ht 177.8 cm; Wt 97.5 kg
[2025-02-14 13:34] VITALS: BP 179/91
[2025-02-14] MEDS ORDERED: NYSTOP15 GM TOP ×2 (13:40→13:42)
== END 2025-02-14 13:41 | disposition home or self-care (01) ==
LOC: ER 12:58
DX: B37.2 Candidiasis of skin and nail (principal); K21.9 Gastro-esophageal reflux disease without esophagitis; E78.5 Hyperlipidemia, unspecified; Z79.01 Long term (current) use of anticoagulants; Z79.899 Other long term (current) drug therapy; Z95.0 Presence of cardiac pacemaker; Z90.49 Acquired absence of other specified parts of digestive tract; Z90.89 Acquired absence of other organs
CPT/HCPCS: 99282

== ENCOUNTER 2025-02-17 05:57 | Day surgery (SDC) | payer MEDICARE ==
[~2025-02-17 05:57] MED LIST changes: +NYSTOP15 GM TOP
== END 2025-02-17 23:00 | disposition home or self-care (01) ==
LOC: WOUND 05:57
DX: S31.103A Unspecified open wound of abdominal wall, right lower quadrant without penetration into peritoneal cavity, initial encounter (principal); L08.0 Pyoderma; X58.XXXA Exposure to other specified factors, initial encounter
CPT/HCPCS: A6213; A9270

== ENCOUNTER 2025-03-03 04:14 | Day surgery (SDC) | payer MEDICARE | END 2025-03-03 23:00 | disposition home or self-care (01) | LOC: WOUND 04:14 | DX: L08.0 Pyoderma (principal); I25.10 Atherosclerotic heart disease of native coronary artery without angina pectoris; I10 Essential (primary) hypertension | CPT/HCPCS: A6213; G0463 ==

== ENCOUNTER 2025-03-09 01:56 | Day surgery (SDC) | payer MEDICARE ==
[2025-03-09] MEDS ORDERED: Lidocaine HCl 4% Cream 5 GM ONE (15:25)
== END 2025-03-09 23:00 | disposition home or self-care (01) ==
LOC: WOUND 01:56
DX: L08.0 Pyoderma (principal); I10 Essential (primary) hypertension; I25.10 Atherosclerotic heart disease of native coronary artery without angina pectoris
CPT/HCPCS: A6213; A9270; G0463

== ENCOUNTER 2025-03-24 00:47 | Day surgery (SDC) | payer MEDICARE | END 2025-03-24 23:00 | disposition home or self-care (01) | LOC: WOUND 00:47 | DX: L08.0 Pyoderma (principal); S31.103D Unspecified open wound of abdominal wall, right lower quadrant without penetration into peritoneal cavity, subsequent encounter; I25.10 Atherosclerotic heart disease of native coronary artery without angina pectoris; I10 Essential (primary) hypertension | CPT/HCPCS: A6213; A9270 ==

== ENCOUNTER 2025-03-31 08:00 | Day surgery (SDC) | payer MEDICARE | END 2025-03-31 23:00 | disposition home or self-care (01) | LOC: WOUND 08:00 | DX: L08.0 Pyoderma (principal); I25.10 Atherosclerotic heart disease of native coronary artery without angina pectoris; I10 Essential (primary) hypertension | CPT/HCPCS: A6213; A9270 ==

== ENCOUNTER 2025-04-07 02:20 | Day surgery (SDC) | payer MEDICARE | END 2025-04-07 23:00 | disposition home or self-care (01) | LOC: WOUND 02:20 | DX: L08.0 Pyoderma (principal); I25.10 Atherosclerotic heart disease of native coronary artery without angina pectoris; I10 Essential (primary) hypertension | CPT/HCPCS: A6196; A6213; G0463 ==

== ENCOUNTER 2025-04-11 02:10 | Day surgery (SDC) | payer MEDICARE | END 2025-04-11 23:57 | disposition home or self-care (01) | LOC: WOUND 02:10 | DX: L08.0 Pyoderma (principal); S31.109D Unspecified open wound of abdominal wall, unspecified quadrant without penetration into peritoneal cavity, subsequent encounter; I25.10 Atherosclerotic heart disease of native coronary artery without angina pectoris; I10 Essential (primary) hypertension | CPT/HCPCS: A6196; A6213; A9270 ==

== ENCOUNTER 2025-04-28 00:26 | Day surgery (SDC) | payer MEDICARE ==
[2025-04-28] MEDS ORDERED: Miconazole Nitrate 28 GM CREAM..G. TOP ONE (11:23)
== END 2025-04-28 23:00 | disposition home or self-care (01) ==
LOC: WOUND 00:26
DX: L08.0 Pyoderma (principal); S31.109D Unspecified open wound of abdominal wall, unspecified quadrant without penetration into peritoneal cavity, subsequent encounter; I25.10 Atherosclerotic heart disease of native coronary artery without angina pectoris; I10 Essential (primary) hypertension
CPT/HCPCS: A6213; A9270; G0463

== ENCOUNTER 2025-06-02 01:01 | Day surgery (SDC) | payer MEDICARE | END 2025-06-02 23:00 | disposition home or self-care (01) | LOC: WOUND 01:01 | DX: L08.0 Pyoderma (principal); I25.10 Atherosclerotic heart disease of native coronary artery without angina pectoris; I10 Essential (primary) hypertension | CPT/HCPCS: A6213; G0463 ==

== ENCOUNTER 2025-06-09 00:25 | Day surgery (SDC) | payer MEDICARE ==
[2025-06-09] MEDS ORDERED: Miconazole Nitrate 28 GM CREAM..G. TOP ONE (11:31)
== END 2025-06-09 23:00 | disposition home or self-care (01) ==
LOC: WOUND 00:25
DX: L08.0 Pyoderma (principal); I25.10 Atherosclerotic heart disease of native coronary artery without angina pectoris; I10 Essential (primary) hypertension
CPT/HCPCS: A6213; A9270; G0463

== ENCOUNTER 2025-06-23 08:08 | Day surgery (SDC) | payer MEDICARE ==
[~2025-06-23] VITALS: Ht 175.3 cm; Wt 86.9 kg
[2025-06-23] VITALS (14 sets, daily range): BP systolic 127–171; BP diastolic 66–85
[~2025-06-23 08:08] MED LIST changes: +ALEVAZOL56.7 G1 TOP; +ASCO500 PO; +Celexa20 MG PO; +ELIQUIS2.5 MG PO; +LOVA20 PO; +MULTI-VITAMIN1 EAC2 PO; +UNISOM PM PAIN1 EACH PO; +Vitamin D1000 UNI1 PO
[2025-06-23] MEDS ORDERED: CeFAZolin Sodium 2,000 MG in NS 100 ML IV SCH (08:15)
[2025-06-23] MEDS ORDERED: FentaNYL Citrate 50 MCG/ML 2 ML Injection ONE ×2 (08:27→10:15)
[2025-06-23] MEDS ORDERED: Ondansetron HCl 2 MG / ML 2ML Vial IV PRN (08:30)
[2025-06-23] MEDS ORDERED: HYDROmorphone HCl/Pf 1MG SYR IV PRN (08:30)
[2025-06-23] MEDS ORDERED: Albuterol 2.5 MG/3 ML VIAL INH PRN (08:30)
[2025-06-23] MEDS ORDERED: FentaNYL Citrate 50 MCG/ML 2 ML Injection IV PRN ×2 (08:30)
[2025-06-23] MEDS ORDERED: Bupivacaine 0.5% HCl 5 MG/ML 30MLVIAL ONE (08:44)
--- NOTE | 2025-06-23 08:56 | NUR ---
Pre-Op teaching done. Pt verbalizes understanding. Ambulatory in Day Surgery WITH A CANE. History, Chart, Medications and Allergies reviewed before start of procedure. Patient confirms NPO status and agrees with scheduled surgery. Patient States Post-Procedure ride home has been arranged. DISCOLORATION NOTED TO BILATERAL LOWER EXTREMITIES. RINGS X2 REMOVED, GIVEN TO SON IN A BAGGIE WITH A PATIENT LABEL ON IT.
[2025-06-23] MEDS ORDERED: Dexamethasone Sod Phos 10 MG/ML 1ML VIAL ONE (09:17)
[2025-06-23] MEDS ORDERED: Ondansetron HCl 2 MG / ML 2ML Vial ONE (09:17)
[2025-06-23] MEDS ORDERED: HYDROcodone 5-APAP 325 TAB PO PRN (10:00)
--- NOTE | 2025-06-23 11:39 | NUR ---
Patient up to Ambulate independently. Gait steady. Discharge instructions reviewed with patient. Patient verbalizes understanding. Copy given to patient to take home, WELL FAMILY. Patient States Post-Procedure ride home has been arranged. Discharged via wheelchair to private car for ride home. PT INCISION CDI. ABD PLACED ON PT WITH OTHER RN ASSIST, FAMILY PRESENT. PT REPORTS PAIN TOLERABLE AND READY TO GO HOME. PT TOLERATING PO.
== END 2025-06-23 11:39 | disposition home or self-care (01) ==
LOC: ORSCMMR 08:08 → ORD 09:30 → ORSCMMR 11:39
PROVIDERS: Surgery
PROC: 0JB80ZZ Excision of Abdomen Subcutaneous Tissue and Fascia, Open Approach (ICD-10-PCS; principal; 2025-06-23 09:30)
DX: L92.9 Granulomatous disorder of the skin and subcutaneous tissue, unspecified (principal); E78.5 Hyperlipidemia, unspecified; G47.33 Obstructive sleep apnea (adult) (pediatric); I10 Essential (primary) hypertension; Z86.718 Personal history of other venous thrombosis and embolism; F32.A Depression, unspecified; N18.9 Chronic kidney disease, unspecified; Z79.01 Long term (current) use of anticoagulants; Z79.899 Other long term (current) drug therapy; Z87.891 Personal history of nicotine dependence
CPT/HCPCS: 88305; A9270; J0690; J1100; J2405; J2704; J3010; J7120

== ENCOUNTER 2025-07-07 03:06 | Day surgery (SDC) | payer MEDICARE | END 2025-07-07 23:00 | disposition home or self-care (01) | LOC: WOUND 03:06 | DX: L08.0 Pyoderma (principal); I25.10 Atherosclerotic heart disease of native coronary artery without angina pectoris; I10 Essential (primary) hypertension | CPT/HCPCS: G0463 ==